=== PATIENT | female | born 1955 | race Caucasian/White ===

== ENCOUNTER 2023-01-04 16:00 | Emergency (ER) | payer MEDICARE, OTHER, SELFPAY ==
[2023-01-04] VITALS (21 sets, daily range): BP systolic 87–120; BP diastolic 39–71; PULSE 62–86; RESP 10–18; TEMP 36.4; O2SAT 97–100
--- NOTE | ~2023-01-04 | XR_ITS ---
EXAMINATION: XR chest 2V Exam Date/Time: 01/04/2023 17:30 CDT HISTORY: syncopal episode x today. Pt hypotensive Comparison: None. RESULT: Lines, tubes, and devices: None. Lungs and pleura: Clear. Cardiomediastinal silhouette: Unremarkable. Other: No acute osseous or upper abdominal finding. IMPRESSION: No acute cardiopulmonary process. Reviewed, dictated and finalized at location K.
--- NOTE | ~2023-01-04 | CT_ITS ---
EXAMINATION: CT brain wo con DATE: 01/04/2023 17:29 INDICATION: syncope, head trauma . TECHNIQUE: Computed tomography (CT) of the head was performed without intravenous contrast. The mA wa s adjusted according to patient size. Iterative reconstruction technique was employed. The dose-lengt h product was 605.33 mGy-cm. COMPARISON: None. FINDINGS: No acute intracranial hemorrhage or extra-axial fluid collection. No hydrocephalus, mass, or herniation. No acute ischemic infarct. Unremarkable dural venous sinus attenuation. No acute osseous abnormality. The aerated spaces are clear. Mild atrophy and chronic white matter change. Atherosclerotic intracranial calcification. Left anteri or temporal lobe encephalomalacia. IMPRESSION: No acute intracranial process. Reviewed, dictated and finalized at location K.
--- NOTE | 2023-01-04 16:05 | ECG_ITS ---
Measurements Intervals [place] Rate: 65 P: -14 GA: 150 QRS: 56 QRSD: 78 T: 46 QT: 399 QTc: 417 Interpretive Statements SINUS RHYTHM LOW QRS VOLTAGE IN PRECORDIAL LEADS [QRS DEFLECTION < 1.0 mV IN CHEST LEADS] NO PREVIOUS ECG AVAILABLE FOR COMPARISON Electronically Signed On 01-04-2023 20:00:49 CDT by Mary Alice Arceo M.D.
--- NOTE | 2023-01-04 16:15 | ED.SYNCOPE ---
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 Patient states that she was going to her PCP for an appointment. While there she became very lightheaded and had a syncopal episode. She reportedly struck her head. Patient states that she did not actually want to come but she was advised to is her blood pressure was low. Patient denies any pain. States that she has had decreased oral intake for many months due to morning nausea. She is concerned that she does not drink enough fluids. No tongue biting, urinary or bladder incontinence. Patient immediately returned to her baseline. EMS found her to be hypotensive with systolics in the 80s. Currently, the patient denies any complaints. No chest pain, shortness of breath, abdominal pain, leg swelling, numbness or weakness. Related Data Allergies Allergy/AdvReac Type Severity Reaction Status Date / Time No Known Allergies Allergy Verified 01/04/23 17:40 Review of Systems Review of Systems: All systems reviewed & are unremarkable except as noted in HPI and below Exam Narrative: GENERAL: Well-appearing, well-nourished, and in no acute distress. HEAD: Normocephalic, atraumatic. EYES: PERRLA and EOMI. ENT: Nares clear, no rhinorrhea or epistaxis. Mucous membranes moist. NECK: Supple. No midline tenderness CHEST: Clear to auscultation. No respiratory distress. HEART: Regular rate and rhythm. No murmur heard. Normal peripheral pulses. ABDOMEN: Soft, nontender, nondistended EXTREMITIES: Normal range of motion. No edema. SKIN: Warm, dry, no rash. NEURO: No focal deficits. Alert and oriented x3. PSYCH: Normal mood and affect. Course Vital Signs Vital signs: Vital Signs Temperature 97.6 F 01/04/23 16:04 Pulse Rate 68 01/04/23 16:04 Respiratory Rate 16 01/04/23 16:04 Blood Pressure 97/70 L 01/04/23 16:04 Pulse Oximetry 97 01/04/23 16:04 Temperature 97.6 F 01/04/23 16:04 Pulse Rate 86 01/04/23 19:41 Respiratory Rate 13 01/04/23 19:15 Blood Pressure 120/68 01/04/23 19:41 Pulse Oximetry 100 01/04/23 19:15 MDM - Syncope MDM Narrative Medical decision making narrative: Patient is a 67-year-old female presenting after a syncopal episode. Patient was hypotensive with systolics in the 80s EKG per my interpretation shows normal sinus rhythm, normal axis and intervals, no ST elevations or depressions. Blood work remarkable for elevation in her magnesium. Patient has been given 2 L of fluids. After 2 L of fluids, patient's orthostatic vitals have normalized. Patient denies any complaints and has been asking to go home repeatedly. Feel she is safe for outpatient management. Advise close PCP follow-up. Strict return precautions given. Patient voiced understanding and is agreeable with plan. Discharged in stable condition. Differential Diagnosis Differential diagnosis: Likely syncope due to orthostatic hypotension, vasovagal syncope, dehydration and other (seizure) Medical Records Attestation: I reviewed the patient's medical records. Lab Data Attestation: I reviewed the patient's lab results. 01/04/23 16:15 01/04/23 16:46 Labs: Lab Results 01/04/23 01/04/23 01/04/23 Range/Units 16:15 16:46 17:56 WBC 8.2 (4.5-10.0) K/mm3 RBC 3.54 L (4.2-5.4) M/mm3 Hgb 11.8 L (12.0-15.0) g/dL Hct 35.5 L (37.0-47.0) % MCV 100.3 H (80-100) fl MCH 33.3 (26-34) pg MCHC 33.2 (32-36) g/dl RDW 11.7 (11.5-14.5) % Plt Count 258 (150-375) k/mm3 MPV 10.8 H (7.4-10.4) fl Immature Gran % (Auto) 0.4 (0-0.5) % Neut % (Auto) 63.2 (45.5-73.1) % Lymph % (Auto) 26.8 (18.3-44.2) % [place] % (Auto) 6.9 (2.6-8.5) % Eos % (Auto) 2.1
[2023-01-04 16:21] LABS: Basophils Absolute Auto 0.1 K/mm3 (0.0-0.1); Basophils Percent Auto 0.6 % (0.2-1.2); Eosinophils Absolute Auto 0.2 K/mm3 (0-0.3); Eosinophils Percent Auto 2.1 % (0-4.4); Hematocrit 35.5 % (37.0-47.0); Hemoglobin 11.8 g/dL (12.0-15.0); Immature Granulocyte Absolute 0.03 K/mm3 (0.00-0.031); Immature Granulocyte Percent A 0.4 % (0-0.5); Lymphocytes Percent Auto 26.8 % (18.3-44.2); Mean Corpuscular HGB Conc 33.2 g/dl (32-36); Mean Corpuscular Hemoglobin 33.3 pg (26-34); Mean Corpuscular Volume 100.3 fl (80-100); Mean Platelet Volume 10.8 fl (7.4-10.4); Monocytes Absolute Auto 0.6 K/mm3 (0.1-0.6); Monocytes Percent Auto 6.9 % (2.6-8.5); Neutrophils Absolute Auto 5.2 K/mm3 (1.3-6.7); Neutrophils Percent Auto 63.2 % (45.5-73.1); Platelet Count Result 258 k/mm3 (150-375); Red Blood Count 3.54 M/mm3 (4.2-5.4); Red Cell Distribution Width 11.7 % (11.5-14.5); White Blood Count 8.2 K/mm3 (4.5-10.0)
[2023-01-04 17:04] LABS: Alanine Aminotransferase 21 U/L (6-35); Albumin Level 4.2 g/dL (3.5-5.1); Alkaline Phosphatase 92 U/L (38-126); Anion Gap 3 mmol/L (8-16); Aspartate Amino Transferase 22 U/L (14-36); Bilirubin,Total 0.3 mg/dL (0.2-1.3); Blood Urea Nitrogen 14 mg/dL (7-17); Calcium 9.3 mg/dL (8.4-10.2); Carbon Dioxide 30 mmol/L (22-30); Chloride 102 mmol/L (98-107); Estimated Glomerular Filt Rate 55; Glucose 96 mg/dL (65-110); Sodium 135 mmol/L (137-145)
[2023-01-04] MEDS: SODIUM CHLORIDE 0.9% IV 1,000 ML 999 ML IV CONT ×2 (17:40→18:35)
[2023-01-04 18:16] LABS: Lactic Acid Reflex 1.8 mmol/L (0.7-2.0); Lipase 52 U/L (23-300); Magnesium 3.2 mg/dL (1.6-2.3)
[2023-01-04 18:29] LABS: Troponin I < 0.012 ng/mL (0.000-0.034)
== END 2023-01-04 20:07 | disposition home or self-care (01) ==
PROVIDERS: Emergency Provider Emergency Medicine
DX: R55 Syncope and collapse (principal); E86.0 Dehydration; G40.909 Epilepsy, unspecified, not intractable, without status epilepticus; Z87.820 Personal history of traumatic brain injury; K21.9 Gastro-esophageal reflux disease without esophagitis
CPT/HCPCS: 36415; 70450; 71046; 80053; 83605; 83690; 83735; 84484; 85025; 93005; 96360; 96361; 99284; J7030